=== PATIENT | male | born 1950 | race Caucasian/White ===

== ENCOUNTER 2018-11-05 08:30 | Emergency (ER) | payer MEDICARE, OTHER, SELFPAY ==
[2018-11-05 08:41] VITALS: BP 199/76; PULSE 89; RESP 18; TEMP 36.5; O2SAT 100
[2018-11-05 08:53] VITALS: BP 180/70; RESP 16; O2SAT 99
--- NOTE | 2018-11-05 09:04 | NUR.NOTE ---
20/50 right eye could not see chart with left eye patient reports can make out a hernandez outline and 20/50 bilateral Nursing Note:
--- NOTE | 2018-11-05 09:25 | DI.CT_ITS ---
SYMPTOM/DIAGNOSIS: LEFT EYE BLURRY VISION, R/O CVA NONCONTRAST HEAD CT: There are no prior comparison exams. No intracranial hemorrhage, mass or infarct is seen. There is mild atrophy consistent with the patient's age. The ventricles are normal in size. No significant white matter changes are visible. The orbits are unremarkable. There is mild sinus mucosal thickening. The mastoid air cells appear clear. There is no skull fracture. IMPRESSION: No acute abnormality.
--- NOTE | 2018-11-05 09:30 | DI.RAD_ITS ---
SYMPTOM/DIAGNOSIS: LEFT EYE BLURRY VISION, R/O WIDENED MEDIASTINUM PA AND LATERAL CHEST: There are no prior comparison exams. Cardiac and mediastinal contours have a normal appearance. The lungs are clear. There is mild elevation of the right diaphragm. IMPRESSION: Negative chest x-ray.
[2018-11-05 09:40] LABS: Abs Immature Grans 0.05 k/cumm (0.0-0.09); Absolute Basophil Count 0.11 k/cumm (0.0-0.2); Absolute Monocyte Count 0.82 k/cumm (0.11-0.7); Absolute Neutrophil Count 6.88 k/cumm (1.2-6.7); Eosinophils % 1.9; HCT 50.6 % (40.0-50.0); HGB 17.2 g/dL (13.5-17.5); Immature Grans % 0.5; Lymphocytes % 23.7; Mean Corpuscular Hemoglobin 30.3 pg (27.0-33.0); Mean Corpuscular Volume 89.2 fL (80-95); Mean Platelet Volume 8.8 fL (8.0-11.0); Monocytes % 7.8; Neutrophils % 65.1; Platelet Count 338 x1000/uL (130-400); RBC 5.67 m/cumm (4.50-6.00); RBC Distribution Width 14.6 % (11.8-14.1); White Blood Cell Count 10.56 k/cumm (4.4-10.8)
[2018-11-05 09:55] LABS: ALT 24 U/L (12-78); AST 19 U/L (15-37); Albumin 3.9 g/dL (3.4-5.0); Alkaline Phosphatase 105 U/L (46-116); Anion Gap 10.9 mmol/L (3-11); BUN 13 mg/dL (7-18); Bilirubin, Total 0.8 mg/dL (0.2-1.0); CO2 28.1 mmol/L (21.0-32.0); CREATININE 1.02 mg/dL (0.70-1.30); Calcium 9.2 mg/dL (8.5-10.1); Chloride 104 mmol/L (98-107); Glucose 113 mg/dL (70-100); Potassium 4.2 mmol/L (3.5-5.1); Sodium 143 mmol/L (136-145); Troponin I 0.04 ng/mL (0.00-0.06)
--- NOTE | 2018-11-05 10:39 | NUR.NOTE ---
patient examined by MD, has been to CT and back denies any pain or nausea, continued left eye hernandez vision Nursing Note:
--- NOTE | 2018-11-05 10:44 | ED.GENADUL_ITS ---
Discharge Plan Disposition Patient Disposition: OTHER Condition: Stable Discharge Details Chief Complaint: EyeProblem Clinical Impression: Unilateral visual loss Primary Care Provider: Scott Dangelo ED Provider: Shaylee Dockery Home Meds and New Rx's Prescriptions: Continued tamsulosin 0.4 MG capsule 0.4 mg PO DAILY Qty: 90 RF: 4 amlodipine 5 MG tablet 5 mg PO DAILY RF: 0 simvastatin 20 MG tablet 20 mg PO DAILY RF: 0 aspirin [Aspirin Low-Strength] 81 MG tablet,chewable 81 mg PO DAILY RF: 0 bupropion HCl 150 MG tablet extended release 24 hr 150 mg PO BID RF: 0 Discharge Instructions Instructions: Blurred Vision (ED) Additional Instructions: Go directly to [facility] across the street at [address] - [address] - for your appointment at 11:15am with Dr. Morgan. Return immediately to the emergency department any worsening or new concerning symptoms. Discharge Data Discharge Date/Time-TO BE ENTERED AT DEPARTURE: 11/05/18 11:00 Discharge Physician: Shaylee Dockery Medical Decision Making 68yo M with a history hypertension high cholesterol who presents with left eye vision loss since last night. Describes it as hernandez, flashes of light and photophobia. No eye pain, injury, headache, dizziness, unilateral weakness/numbness or speech changes. OD 20/50, OS none, OU 20/50. Patient appears nontoxic and in no acute distress. No focal deficits. Left eye possible papilledema, difficult to assess in miotic pupil. No afferent pupillary defect. No evidence of cellulitis, glaucoma or trauma. Differential diagnoses include central retinal artery or vein occlusion, retinal detachment, ocular migraine, optic neuropathy, etc. Labs and imaging obtained on arrival and unremarkable. Negative CT head, chest x-ray. Will call ophthalmology here for recs. [facility] across the [address] and Dr. Morgan will see pt at 11:15am this morning. Patient discharged to go directly to his appointment now. Patient instructed to return immediately with any concerns. Medical Records Medical records reviewed: Yes I reviewed the patient's medical records. Imaging Data Radiologic Study: Radiologist's impression: RAD:XR chest 2V PA & lateral SYMPTOM/DIAGNOSIS: LEFT EYE BLURRY VISION, R/O WIDENED MEDIASTINUM PA AND LATERAL CHEST: There are no prior comparison exams. Cardiac and mediastinal contours have a normal appearance. The lungs are clear. There is mild elevation of the right diaphragm. IMPRESSION: Negative chest x-ray. CT:CT head wo SYMPTOM/DIAGNOSIS: LEFT EYE BLURRY VISION, R/O CVA NONCONTRAST HEAD CT: There are no prior comparison exams. No intracranial hemorrhage, mass or infarct is seen. There is mild atrophy consistent with the patient's age. The ventricles are normal in size. No significant white matter changes are visible. The orbits are unremarkable. There is mild sinus mucosal thickening. The mastoid air cells appear clear. There is no skull fracture. IMPRESSION: No acute abnormality. Lab Data Lab results reviewed: Yes I reviewed the patient's lab results. Laboratory Tests Range/Units 11/05/18 11/05/18 09:30 09:30 WBC (4.4-10.8) k/cumm 10.56 RBC (4.50-6.00) m/cumm 5.67 Hgb (13.5-17.5) g/dL 17.2 Hct (40.0-50.0) % 50.6 H MCV (80-95) fL 89.2 MCH (27.0-33.0) pg 30.3 MCHC (32.0-36.0) g/dL 34.0 RDW (11.8-14.1) % 14.6 H Plt Count (130-400) x1000/uL 338 MPV (8.0-11.0) fL 8.8 Immature Gran % 0.5 Neutrophils % 65.1 Lymphocytes % 23.7 Monocytes % 7.8 Eosinophils % 1.9 Basophils % 1.0 Absolute Neutrophils (1.2-6.7) k/cumm 6.88 H Absolute Lymphocytes (1.2-3.4) k/cumm 2.50 Absolute Monocytes (0.11-0.7) k/cumm 0.82 H Absolute Eosinophils (0.0-0.7) k/cumm 0.20 Absolute Basophils (0.0-0.2) k/cumm 0.11 Sodium (136-145) mmol/L 143 Potassium (3.5-5.1) mmol/L 4.2 Chloride (98-107) mmol/L 104 Carbon Dioxide (21.0-32.0) mmol/L 28.1 Anion Gap (3-11) mmol/L 10.9 BUN (7-18) mg/dL 13 Creatinine (0.70-1.30) mg/dL 1.02 Estimated GFR/1.73 m2 (mL/min/1.73m2) >= 60.00 Glucose (70-100) mg/dL 113 H Calcium (8.5-10.1) mg/dL 9.2 Magnesium (1.8-2.4) mg/dL 2.0 Total Bilirubin (0.2-1.0) mg/dL 0.8 AST (15-37) U/L 19 ALT (12-78) U/L 24 Alkaline Phosphatase (46-116) U/L 105 Troponin I (0.00-0.06) ng/mL 0.04 Total Protein (6.4-8.2) g/dL 8.0 Albumin (3.4-5.0) g/dL 3.9 HPI General Mode of arrival: ambulatory . Date/Time Provider Initiated Documentation: 11/05/18 09:05 . Limitations to Documentation: no limitations . Information obtained by: patient . HPI Narrative: Patient is a 68 year old male with a history of hypertension and high cholesterol who presents with left eye visual loss since last night. Patient states he was walking into his house when he thought that his left eye appeared hernandez and he had loss of vision in his left eye. States when he closes his eye he sees lightning flashes in his left eye. He also admits to left eye light sensitivity. Patient states when he closes his left eye and opens it, he has brief return of vision but then loses the vision after 2-3 seconds. He denies any eye pain, eye injury, headache, dizziness, tearing, discharge. He does not wear contacts. Related Data Home Medications Medication Instructions Recorded Confirmed tamsulosin 0.4 mg PO DAILY #90 tab-cap 03/17/14 11/05/18 amlodipine 5 mg PO DAILY 02/10/15 11/05/18 aspirin [Aspirin Low-Strength] 81 mg PO DAILY 02/10/15 11/05/18 bupropion HCl 150 mg PO BID 02/10/15 02/10/15 simvastatin 20 mg PO DAILY 02/10/15 11/05/18 Allergies Allergy/AdvReac Type Severity Reaction Status Date / Time losartan AdvReac cough Unverified 11/05/18 08:50 General Stated Complaint: EyeProblem ARUN: 2 Review of Systems Review of Systems All systems reviewed & are unremarkable except as noted in HPI and below Constitutional Reports as per HPI, Denies chills and Denies fever(s) Eyes Reports blurry vision ENT Denies dizziness, Denies sore throat and Denies throat swelling Cardiovascular Denies chest pain and Denies dyspnea Respiratory Denies dyspnea Gastrointestinal Denies abdominal pain, Denies diarrhea and Denies vomiting Genitourinary Denies hematuria and Denies dysuria Musculoskeletal Denies back pain and Denies numbness Integumentary/Breasts Denies lesions and Denies rash Neurologic Denies dizziness and Denies numbness Allergic/Immunologic Denies throat swelling PFSH Medical History Hyperlipemia (Acute) No significant past surgical history (Acute) HTN (hypertension) (Chronic) Social History Smoking/Tobacco Use Status: Current every day alcohol intake: current alcohol intake frequency: a few times a month substance use type: does not use Exam Const General: cooperative and healthy appearing Orientation: alert and awake HENMT Head: normal to inspection Ears: hearing grossly normal bilaterally, external ears normal and TM's normal bilaterally General nose exam: external nose normal Face and sinus: normal facial exam Mouth: oral mucosae normal Eyes General: appearance normal, both eyes and all related structures Eyelids: eyelids normal Pupils: PERRL EOM: EOM intact bilaterally Direct ophthalmoscopy: anterior chamber abnormal, vascular abnormality on the left (questionable papilledema on L, limited due to miotic pupil ) and other (no afferent pupillary defect ) Neck Neck: normal visual inspection Lymphatic: no lymphadenopathy noted Resp Effort & Inspection: normal respiratory effort and able to speak in complete sentences Auscultation: clear to auscultation bilaterally Cardio Rate: regular rate Rhythm: regular rhythm Skin General skin exam: no rashes or lesions noted Neuro General: alert and awake Cranial Nerves: CN's II-XI intact bilaterally Cognition: normal cognition Speech: speech normal Gait: normal gait Motor: muscle tone normal throughout and strength 5/5 throughout Sensory Exam: no sensory deficits noted Extrem General: normal to inspection and full ROM Psych Appearance: grossly normal Mental Status: mental status grossly normal Speech and Movement: speech and movement normal Affect: normal affect Thought Process: normal Course Vital Signs Temperature 97.7 F 11/05/18 08:41 Pulse 89 11/05/18 08:41 Respiratory Rate 18 11/05/18 08:41 Blood Pressure 199/76 H 11/05/18 08:41 Pulse Oximetry 100 11/05/18 08:41 Temperature 97.7 F 11/05/18 08:41 Temperature Source Skin 11/05/18 08:41 Pulse 89 11/05/18 08:41 Respiratory Rate 16 11/05/18 08:53 Respiratory Effort 11/05/18 08:44 Blood Pressure 180/70 H 11/05/18 08:53 Blood Pressure Position Sitting 11/05/18 08:41 Pulse Oximetry 99 11/05/18 08:53 Oxygen Delivery Method Room Air 11/05/18 08:53 Oxygen Flow Rate 0 11/05/18 08:53 Pain Level 0 11/05/18 08:53 Lab/Test Results Lab/Test Results: Laboratory Tests Range/Units 11/05/18 11/05/18 09:30 09:30 WBC (4.4-10.8) k/cumm 10.56 RBC (4.50-6.00) m/cumm 5.67 Hgb (13.5-17.5) g/dL 17.2 Hct (40.0-50.0) % 50.6 H MCV (80-95) fL 89.2 MCH (27.0-33.0) pg 30.3 MCHC (32.0-36.0) g/dL 34.0 RDW (11.8-14.1) % 14.6 H Plt Count (130-400) x1000/uL 338 MPV (8.0-11.0) fL 8.8 Immature Gran % 0.5 Neutrophils % 65.1 Lymphocytes % 23.7 Monocytes % 7.8 Eosinophils % 1.9 Basophils % 1.0 Absolute Neutrophils (1.2-6.7) k/cumm 6.88 H Absolute Lymphocytes (1.2-3.4) k/cumm 2.50 Absolute Monocytes (0.11-0.7) k/cumm 0.82 H Absolute Eosinophils (0.0-0.7) k/cumm 0.20 Absolute Basophils (0.0-0.2) k/cumm 0.11 Sodium (136-145) mmol/L 143 Potassium (3.5-5.1) mmol/L 4.2 Chloride (98-107) mmol/L 104 Carbon Dioxide (21.0-32.0) mmol/L 28.1 Anion Gap (3-11) mmol/L 10.9 BUN (7-18) mg/dL 13 Creatinine (0.70-1.30) mg/dL 1.02 Estimated GFR/1.73 m2 (mL/min/1.73m2) >= 60.00 Glucose (70-100) mg/dL 113 H Calcium (8.5-10.1) mg/dL 9.2 Magnesium (1.8-2.4) mg/dL 2.0 Total Bilirubin (0.2-1.0) mg/dL 0.8 AST (15-37) U/L 19 ALT (12-78) U/L 24 Alkaline Phosphatase (46-116) U/L 105 Troponin I (0.00-0.06) ng/mL 0.04 Total Protein (6.4-8.2) g/dL 8.0 Albumin (3.4-5.0) g/dL 3.9
[2018-11-05 10:59] VITALS: BP 175/86; PULSE 78
--- NOTE | 2018-11-05 11:00 | NUR.NOTE ---
aware of ekg not done and not needed Nursing Note:
== END 2018-11-05 11:00 | disposition other institution (70) ==
PROVIDERS: Emergency Provider Physician Assistant; PCP Internal Medicine
DX: H54.62 Unqualified visual loss, left eye, normal vision right eye (principal); I10 Essential (primary) hypertension
CPT/HCPCS: 80053; 99284; 70450; 71046; 83735; 84484; 85025

== ENCOUNTER 2018-11-12 00:51 | Outpatient (CLI) | payer MEDICARE, OTHER, SELFPAY ==
--- NOTE | 2018-11-12 09:34 | DI.US_ITS ---
SYMPTOM/DIAGNOSIS: CENTRAL RETINAL ARTERY OCCLUSION, LT H34.12 CAROTID ULTRASOUND: The study was conducted according to the usual protocol. Severe plaque is noted in the right carotid bulb and internal carotid artery and its proximal segment. There is moderate to severe plaque in the left bulb and external carotid artery. The left ICA proximal and distal segments are completely occluded and filled with plaque. Bilateral antegrade flow is noted in the vertebrals. There is near occlusion involving the right internal carotid artery as well with complete occlusion of the left internal carotid artery noted. 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 These findings were conveyed to the provider immediately following completion of the exam.
== END 2018-11-12 01:11 ==
PROVIDERS: PCP Internal Medicine; Visit Provider Internal Medicine
DX: H34.12 Central retinal artery occlusion, left eye (principal); I65.23 Occlusion and stenosis of bilateral carotid arteries
CPT/HCPCS: 93880

== ENCOUNTER 2021-02-08 10:04 | Day surgery (SDC) | payer MEDICARE, OTHER, SELFPAY ==
[2021-02-08 10:26] VITALS: BP 140/65; PULSE 71; RESP 16; TEMP 36.3; O2SAT 98
[2021-02-08] MEDS: Tropicam./Phenyleph. (1/2.5%) 5 ML BTL OD ×3 (10:48→11:04)
[2021-02-08] MEDS: Tetracaine 0.5% 4 ML BTL OD (11:57)
[2021-02-08] MEDS: Balanced Salt Soln.-PLUS 500 ML BAG (11:57)
[2021-02-08] MEDS: Duovisc Viscoelastic System EACH 1 EACH (11:58)
[2021-02-08] MEDS: Lidocaine 1% Pres-Free 5 ML VIAL (11:58)
[2021-02-08] MEDS: Lidocaine 2% Jelly 6 ML SYR (11:59)
[2021-02-08] MEDS: Povidone-Iodine Ophth 30 ML BTL (12:00)
--- NOTE | 2021-02-08 12:16 | W.PM.DSUDISC ---
Discharge Plan Disposition Patient Disposition: HOME Condition: Good Discharge Details Attending Provider: Gee Burch Primary Care Provider: Scott Dangelo Home Meds and New Rx's Prescriptions: No Action tamsulosin 0.4 MG capsule 0.4 mg PO DAILY Qty: 90 RF: 4 amlodipine 5 MG tablet 5 mg PO DAILY RF: 0 simvastatin 20 MG tablet 20 mg PO DAILY RF: 0 bupropion HCl 150 MG tablet extended release 24 hr 150 mg PO BID RF: 0 aspirin 325 mg Tablet 325 mg PO DAILY RF: 0 Discharge Instructions Stand Alone Forms: Post-op Topical Cataract, Yesi Campos (DSU) Discharge Orders Discharge Orders: Discharge Order (Routine); Ordered 02/08/21 Ordered By: Gee Burch DS: Diagnosis Discharge Diagnosis (1) Cortical cataract of right eye: Status: Resolved (2) Nuclear sclerotic cataract of right eye: Status: Resolved (3) Posterior subcapsular age-related cataract, right eye: Status: Resolved
--- NOTE | 2021-02-08 12:18 | ROE_ITS ---
Date of service: 02/08/21 Time of Service: 12:18 Operative Note Operative Note DATE OF PROCEDURE: 02/08/21 PRE-OP DIAGNOSIS: Nuclear/cortical/posterior subcapsular cataract, right eye POST-OP DIAGNOSIS: same PROCEDURE: Cataract extraction using phacoemulsification with intraocular lens implant, right eye SURGEON: Gee Burch ANESTHESIA TYPE: Local By Surgeon and MAC Refer to Anesthesia Record ESTIMATED BLOOD LOSS: 0 PATHOLOGY: none sent COMPLICATIONS: None Patient was transported to: same day Patient's condition: stable Implants: [employer] / [employer] Tecnis [id number] intraocular lens Indications: Progressive decreased vision due to cataract, right eye Procedure Description: CATARACT SURGERY OPERATIVE REPORT PREOPERATIVE DIAGNOSIS: Nuclear/cortical/posterior subcapsular cataract, right eye POSTOPERATIVE DIAGNOSIS: Same OPERATION: Cataract extraction using phacoemulsification with posterior chamber intraocular lens implant, right eye. IOL: IOL Primary Care Nurse/Model: [employer] / [employer]ICK[employer] Tecnis [id number] IOL Power: + 21.5 diopters IOL Serial Number: [id number] Optic Diameter: 6.0mm Haptic/Overall Diameter: 13.0mm PHACO INFO: [employer] Vision System with [employer]Zil and [employer] Cumulative Dispersed Energy (CDE): 5.64 seconds SURGEON: Gee Burch MD, HUEY ANESTHESIA: Monitored Anesthesia Care (MAC), with local sub-tenon's anesthetic infiltration COMPLICATIONS: None SPECIMENS: None INDICATIONS FOR PROCEDURE: Patient is a 70-year-old gentleman with history of diminished visual acuity in the right eye secondary to the development of nuclear/cortical/posterior subcapsular cataract in the right eye. The option of cataract surgery was offered to the patient and he felt he was symptomatic enough that he wished to proceed. PROCEDURE: The correct surgical eye was identified and marked as the right eye and the pupil was dilated in the preoperative area using mydriatics and cycloplegics. The dilated pupil size was 7.0 mm. He elected to proceed without sedation. The patient was brought to the operating room where cardiopulmonary monitoring was instituted and surgical time-out was performed, confirming the correct operative eye and IOL power. Topical anesthesia was administered and ophthalmic povidone-iodine 5% was instilled into the conjunctival fornices. Lidocaine gel was applied to the cornea and the nayan-ocular area was prepped with Betadine 10% solution and draped in the usual sterile fashion for intraocular surgery, including an aperture drape. A Tegaderm transparent film dressing was cut in half and used to cover the lashes and lid margins. Care was taken to sequester the lashes and lid margins under the Tegaderm dressing. A lid speculum was placed between the lids of the operative eye and the [employer] operating microscope was maneuvered into position. Fiona scissors were then used to make a conjunctival buttonhole approximately 6mm posterior to the limbus in the inferonasal quadrant. Blunt dissection was carried out to expose bare sclera, and a blunt-tipped sub-tenon?s anesthesia cannula was introduced and passed posteriorly along the globe where non- preserved plain lidocaine was injected into posterior sub-Tenon?s space. A sideport knife was used to make a paracentesis port inferiortemporally. Intraocular phenylephrine/lidocaine was injected into the anterior chamber. The anterior chamber was then filled with viscoelastic. A 2.4mm keratome knife was used to create a half-thickness groove at the limbus and then to construct a three-plane near-clear corneal tunnel extending 2.0mm into clear cornea in the superiortemporal position. . A flap was raised on the anterior capsule and capsulorhexis forceps were used to complete a continuous curvilinear capsulorhexis of 5.0mm. Balanced salt solution was then used to perform cortical cleaving hydrodissection and nuclear hydrodelineation until the lens could be freely rotated within the capsular bag. The lens nucleus was then disassembled and removed within the capsular bag and iris plane using phacoemulsification. Residual cortical material was removed using the I/A handpiece. The posterior capsule was carefully polished to remove as much residual lens epithelial cells as safely possible. The capsular bag was then inflated and the anterior chamber deepened with viscoelastic. The lens implant described above was inserted into the capsular bag using the NICK[employer] [place] Injector. A Kuglen hook was used to dial the IOL into position. Residual viscoelastic was then removed first from posterior to the IOL, then from the anterior chamber using the I/A handpiece. The lens implant was noted to center nicely within the capsular bag. The incisions were stromally hydrated, and the anterior chamber was reformed using BSS. Then 0.5cc of moxifloxacin 1.0mg/ml were injected into the capsular bag and anterior chamber. The incisions were checked with a Weck spear and found to be secure. Several drops of ophthalmic povidone-iodine 5% were then applied to the eye followed by two drops of Imprimis combination prednisolone/moxifloxacin/nepafenac solution. The drapes were removed and a clear plastic protective eye shield was placed over the eye. The patient was then returned to [facility] in stable condition.
== END 2021-02-08 12:45 | disposition home or self-care (01) ==
PROVIDERS: PCP Internal Medicine; Visit Provider Ophthalmology
PROC: (CPT 66984; principal; 2021-02-08 13:30)
DX: H25.11 Age-related nuclear cataract, right eye (principal); H25.041 Posterior subcapsular polar age-related cataract, right eye; E78.00 Pure hypercholesterolemia, unspecified; I10 Essential (primary) hypertension
CPT/HCPCS: 66984; V2632

== ENCOUNTER 2021-02-22 07:30 | Day surgery (SDC) | payer MEDICARE, OTHER, SELFPAY ==
[2021-02-22] MEDS: Tropicam./Phenyleph. (1/2.5%) 5 ML BTL OS ×3 (07:47→08:02)
[2021-02-22 07:52] VITALS: BP 119/69; PULSE 64; RESP 16; TEMP 36.5; O2SAT 98
[2021-02-22] MEDS: Tetracaine 0.5% 4 ML BTL OS (08:58)
[2021-02-22] MEDS: Lidocaine 2% Jelly 6 ML SYR (08:59)
[2021-02-22] MEDS: Povidone-Iodine Ophth 30 ML BTL (09:00)
[2021-02-22] MEDS: Lidocaine 1% Pres-Free 5 ML VIAL (09:06)
[2021-02-22] MEDS: Balanced Salt Soln.-PLUS 500 ML BAG (09:10)
[2021-02-22] MEDS: Duovisc Viscoelastic System EACH 1 EACH (09:11)
--- NOTE | 2021-02-22 09:27 | W.PM.DSUDISC ---
Discharge Plan Disposition Patient Disposition: HOME Condition: Good Discharge Details Attending Provider: Gee Burch Primary Care Provider: Scott Dangelo Home Meds and New Rx's Prescriptions: No Action tamsulosin 0.4 MG capsule 0.4 mg PO DAILY Qty: 90 RF: 4 amlodipine 5 MG tablet 5 mg PO DAILY RF: 0 simvastatin 20 MG tablet 20 mg PO DAILY RF: 0 bupropion HCl 150 MG tablet extended release 24 hr 150 mg PO BID RF: 0 aspirin 325 mg Tablet 325 mg PO DAILY RF: 0 Discharge Instructions Stand Alone Forms: Post-op Topical Cataract, Yesi Campos (DSU) Discharge Orders Discharge Orders: Discharge Order (Routine); Ordered 02/22/21 Ordered By: Gee Burch DS: Diagnosis Discharge Diagnosis (1) Cortical cataract of left eye: Status: Resolved (2) Nuclear sclerotic cataract of left eye: Status: Resolved (3) Posterior subcapsular age-related cataract of left eye: Status: Resolved (4) Central retinal artery occlusion of left eye: Status: Chronic
--- NOTE | 2021-02-22 09:29 | W.PM.OP ---
Date of service: 02/22/21 Time of Service: 09:29 Operative Note Operative Note DATE OF PROCEDURE: 02/22/21 PRE-OP DIAGNOSIS: Nuclear/cortical/posterior subcapsular cataract, left eye POST-OP DIAGNOSIS: same PROCEDURE: Cataract extraction using phacoemulsification with intraocular lens implant, left eye SURGEON: Gee Burch ANESTHESIA TYPE: Local By Surgeon and MAC Refer to Anesthesia Record PATHOLOGY: none sent COMPLICATIONS: None Patient was transported to: same day Patient's condition: stable Implants: [employer] / [employer] Tecnis ZCB00 Indications: Progressive decreased vision due to cataract, left eye Procedure Description: CATARACT SURGERY OPERATIVE REPORT PREOPERATIVE DIAGNOSIS: Nuclear/cortical/posterior subcapsular cataract, left eye POSTOPERATIVE DIAGNOSIS: Same OPERATION: Cataract extraction using phacoemulsification with posterior chamber intraocular lens implant, left eye. IOL: IOL Chief Compliance Officer/Model: [employer] / [employer]nis ZCB00 IOL Power: + 21.0 diopters IOL Serial Number: [id number] Optic Diameter: 6.0mm Haptic/Overall Diameter: 13.0mm PHACO INFO: Raoul [employer] Vision System with [employer]Zil and [employer] Cumulative Dispersed Energy (CDE): 7.55 seconds SURGEON: Gee Burch MD, HUEY ANESTHESIA: Monitored Anesthesia Care (MAC), with local sub-tenon's anesthetic infiltration COMPLICATIONS: None SPECIMENS: None INDICATIONS FOR PROCEDURE: Patient is a 70-year-old gentleman with history of diminished visual acuity in both eyes secondary to the development of bilateral nuclear/cortical/posterior subcapsular cataract. He has a history of central retinal artery occlusion in the left eye, but maintained some small field of vision. He has already undergone cataract surgery in his right eye and is doing well postoperatively. He now presents for cataract surgery of the left eye to improve and maximize his remaining visual field. PROCEDURE: The correct surgical eye was identified and marked as the left eye and the pupil was dilated in the preoperative area using mydriatics and cycloplegics. The dilated pupil size was 7.0 mm. He elected to proceed without oral sedation the patient was brought to the operating room where cardiopulmonary monitoring was instituted and surgical time-out was performed, confirming the correct operative eye and IOL power. Topical anesthesia was administered and ophthalmic povidone-iodine 5% was instilled into the conjunctival fornices. Lidocaine gel was applied to the cornea and the nayan-ocular area was prepped with Betadine 10% solution and draped in the usual sterile fashion for intraocular surgery, including an aperture drape. A Tegaderm transparent film dressing was cut in half and used to cover the lashes and lid margins. Care was taken to sequester the lashes and lid margins under the Tegaderm dressing. A lid speculum was placed between the lids of the operative eye and the [employer] operating microscope was maneuvered into position. Fiona scissors were then used to make a conjunctival buttonhole approximately 6mm posterior to the limbus in the inferonasal quadrant. Blunt dissection was carried out to expose bare sclera, and a blunt-tipped sub-tenon?s anesthesia cannula was introduced and passed posteriorly along the globe where non-preserved plain lidocaine was injected into posterior sub-Tenon?s space. A sideport knife was used to make a paracentesis port superior/superiortemporally. Intraocular phenylephrine/lidocaine was injected into the anterior chamber. The anterior chamber was then filled with viscoelastic. A 2.4mm keratome knife was used to create a half-thickness groove at the limbus and then to construct a three-plane near-clear corneal tunnel extending 2.0mm into clear cornea in the temporal position. . A flap was raised on the anterior capsule and capsulorhexis forceps were used to complete a continuous curvilinear capsulorhexis of 5.0 mm. Balanced salt solution was then used to perform cortical cleaving hydrodissection and nuclear hydrodelineation until the lens could be freely rotated within the capsular bag. The lens nucleus was then disassembled and removed within the capsular bag and iris plane using phacoemulsification. Residual cortical material was removed using the 45-degree angled silicone I/A tip with 0.3mm port. The posterior capsule was carefully polished to remove as much residual lens epithelial cells as safely possible. The capsular bag was then inflated and the anterior chamber deepened with viscoelastic. The lens implant described above was inserted into the capsular bag using the NICKY [place] Injector. A Kuglen hook was used to dial the IOL into position. Residual viscoelastic was then removed first from posterior to the IOL, then from the anterior chamber using the I/A handpiece. The lens implant was noted to center nicely within the capsular bag. The incisions were stromally hydrated, and the anterior chamber was reformed using BSS. Then 0.5cc of moxifloxacin 1.0mg/ml were injected into the capsular bag and anterior chamber. The incisions were checked with a Weck spear and found to be secure. Several drops of ophthalmic povidone-iodine 5% were then applied to the eye followed by two drops of Imprimis combination prednisolone/moxifloxacin/nepafenac solution. The drapes were removed and a clear plastic protective eye shield was placed over the eye. The patient was then returned to [facility] in stable condition.
== END 2021-02-22 09:42 | disposition home or self-care (01) ==
PROVIDERS: PCP Internal Medicine; Visit Provider Ophthalmology
PROC: (CPT 66984; principal; 2021-02-22 09:30)
DX: H25.12 Age-related nuclear cataract, left eye (principal); H25.042 Posterior subcapsular polar age-related cataract, left eye; H25.012 Cortical age-related cataract, left eye; Z96.1 Presence of intraocular lens; Z98.41 Cataract extraction status, right eye; I10 Essential (primary) hypertension
CPT/HCPCS: 66984; V2632

== ENCOUNTER 2021-08-16 20:25 | Outpatient (REF) | payer MEDICARE, OTHER, SELFPAY ==
[2021-08-18 15:40] LABS: COVID-19 RT-PCR UVMMC Result Negative (Negative)
== END 2021-08-16 20:26 | disposition home or self-care (01) ==
LOC: LBN 20:25
PROVIDERS: PCP Internal Medicine; Visit Provider Physician Assistant Medical
DX: Z20.822 Contact with and (suspected) exposure to COVID-19 (principal); J06.9 Acute upper respiratory infection, unspecified
CPT/HCPCS: U0003

== ENCOUNTER 2021-09-16 13:33 | Outpatient (REF) | payer MEDICARE, OTHER, SELFPAY ==
[2021-09-16 22:35] LABS: Anion Gap 11.7 mmol/L (3-11); BUN 17 mg/dL (7-18); CO2 26.3 mmol/L (21.0-32.0); CREATININE 1.1 mg/dL (0.70-1.30); Calcium 9.2 mg/dL (8.5-10.1); Calculated LDL 71 mg/dL (<100); Chloride 108 mmol/L (98-107); Cholesterol 130 mg/dL (<200); Glucose 115 mg/dL (74-106); HDL Cholesterol 38 mg/dL (40-60); Potassium 4.1 mmol/L (3.5-5.1); Sodium 146 mmol/L (136-145); Triglyceride 108 mg/dL (<150)
== END 2021-09-16 13:34 | disposition home or self-care (01) ==
LOC: NCHCN 13:33
PROVIDERS: PCP Internal Medicine; Visit Provider Internal Medicine
DX: E78.5 Hyperlipidemia, unspecified (principal); I10 Essential (primary) hypertension
CPT/HCPCS: 80048; 80061

== ENCOUNTER 2023-01-05 16:01 | Outpatient (REF) | payer MEDICARE, OTHER, SELFPAY ==
[2023-01-05 15:07] LABS: ALT 16 U/L (16-63); AST < 5 U/L (15-37); Albumin 3.9 g/dL (3.4-5.0); Alkaline Phosphatase 114 U/L (46-116); BUN 11 mg/dL (7-18); Bilirubin, Total 0.7 mg/dL (0.2-1.0); Calcium 9.2 mg/dL (8.5-10.1); Calculated LDL 70 mg/dL (<100); Chloride 104 mmol/L (98-107); Cholesterol 124 mg/dL (<200); Estimated GFR 78.98 (mL/min/1.73m2); Glucose 97 mg/dL (74-106); HDL Cholesterol 45 mg/dL (40-60); Potassium 4.6 mmol/L (3.5-5.1); Sodium 140 mmol/L (136-145); Total Protein 6.9 g/dL (6.4-8.2); Triglyceride 49 mg/dL (<150)
== END 2023-01-05 16:02 | disposition home or self-care (01) ==
LOC: NCHCN 16:01
PROVIDERS: PCP Internal Medicine; Visit Provider Internal Medicine
DX: I10 Essential (primary) hypertension (principal); E78.5 Hyperlipidemia, unspecified; R06.2 Wheezing; F17.210 Nicotine dependence, cigarettes, uncomplicated; N40.1 Benign prostatic hyperplasia with lower urinary tract symptoms
CPT/HCPCS: 80053; 80061

== ENCOUNTER 2023-11-19 14:48 | Outpatient (REF) | payer MEDICARE, OTHER, SELFPAY ==
[2023-11-19 15:15] LABS: Anion Gap 9.6 mmol/L (3-11); BUN 13 mg/dL (7-18); CO2 26.4 mmol/L (21.0-32.0); Chloride 107 mmol/L (98-107); Estimated GFR 78.49 (mL/min/1.73m2); Glucose 94 mg/dL (74-106); Potassium 4.4 mmol/L (3.5-5.1); Sodium 143 mmol/L (136-145)
[2023-11-19 22:31] LABS: PSA, Diagnostic 9.6 ng/mL (<=6.5)
== END 2023-11-19 14:49 | disposition home or self-care (01) ==
LOC: NCHCN 14:48
PROVIDERS: PCP Internal Medicine; Visit Provider Internal Medicine
DX: I10 Essential (primary) hypertension (principal); N40.1 Benign prostatic hyperplasia with lower urinary tract symptoms
CPT/HCPCS: 80048; 84153

== ENCOUNTER → 2023-12-23 09:10 | Outpatient (BNVA) | payer MEDICARE, OTHER, SELFPAY | PROVIDERS: PCP Internal Medicine; Referring Provider Internal Medicine; Visit Provider Nurse Practitioner Gerontology | DX: N40.1 Benign prostatic hyperplasia with lower urinary tract symptoms (principal); N13.8 Other obstructive and reflux uropathy; R97.20 Elevated prostate specific antigen [PSA] | CPT/HCPCS: 51798; 81003; 99205 ==

== ENCOUNTER 2023-12-23 09:47 | Outpatient (REF) | payer MEDICARE, OTHER, SELFPAY | END 2023-12-23 09:48 | disposition home or self-care (01) | LOC: LBN 09:47 | PROVIDERS: PCP Internal Medicine; Visit Provider Nurse Practitioner Gerontology | DX: R35.0 Frequency of micturition (principal) | CPT/HCPCS: 87077; 87086; 87186 ==

== ENCOUNTER 2024-02-17 04:39 | Outpatient (CLI) | payer MEDICARE, OTHER, SELFPAY ==
[2024-02-17 18:52] LABS: PSA, Diagnostic 11.2 ng/mL (<=6.5)
== END 2024-02-17 04:40 | disposition home or self-care (01) ==
LOC: LBO 04:39
PROVIDERS: PCP Internal Medicine; Visit Provider Nurse Practitioner Gerontology
DX: R97.20 Elevated prostate specific antigen [PSA] (principal); N40.1 Benign prostatic hyperplasia with lower urinary tract symptoms; N13.8 Other obstructive and reflux uropathy
CPT/HCPCS: 36415; 84153

== ENCOUNTER → 2024-02-24 08:27 | Outpatient (BNVA) | payer MEDICARE, OTHER, SELFPAY | PROVIDERS: PCP Internal Medicine; Referring Provider Internal Medicine; Visit Provider Nurse Practitioner Gerontology | DX: N40.1 Benign prostatic hyperplasia with lower urinary tract symptoms (principal); N13.8 Other obstructive and reflux uropathy; R97.20 Elevated prostate specific antigen [PSA] | CPT/HCPCS: 51798; 99215 ==

== ENCOUNTER 2024-12-21 16:39 | Outpatient (REF) | payer MEDICARE, OTHER, SELFPAY ==
[2024-12-21 16:01] LABS: Abs Immature Grans 0.06 10^3/uL (0.0-0.06); Absolute Basophil Count 0.12 10^3/uL (0.0-0.2); Absolute Eosinophil Count 0.18 10^3/uL (0.0-0.7); Absolute Lymphocyte Count 2.45 10^3/uL (1.2-3.4); Absolute Monocyte Count 0.75 10^3/uL (0.1-0.8); Absolute Neutrophil Count 5.82 10^3/uL (1.2-6.7); Basophils % 1.3 %; Eosinophils % 1.9 %; HCT 47.6 % (40.0-50.0); HGB 15.9 g/dL (13.5-17.5); Immature Grans % 0.6 %; Lymphocytes % 26.1 %; MCH 29.9 pg (27.0-33.0); MCHC 33.4 % (32.0-36.0); MCV 90 fL (80-95); MPV 9.5 fL (8.0-11.0); Neutrophils % 62.1 %; Platelet Count 352 10^3/uL (130-400); RBC 5.32 10^6/uL (4.36-5.78); RDW 14.1 % (11.8-14.1); RDW-SD 45.8 fL; WBC 9.38 10^3/uL (4.4-10.8)
[2024-12-21 16:40] LABS: ALT 22 U/L (16-63); AST 14 U/L (15-37); Albumin 3.8 g/dL (3.4-5.0); Alkaline Phosphatase 123 U/L (46-116); Anion Gap 8.8 mmol/L (3-11); BUN 14 mg/dL (7-18); Bilirubin, Total 0.63 mg/dL (0.2-1.0); CO2 27.2 mmol/L (21.0-32.0); CREATININE 1.1 mg/dL (0.70-1.30); Calcium 9.2 mg/dL (8.5-10.1); Chloride 110 mmol/L (98-107); Estimated GFR 69.57 (mL/min/1.73m2); Glucose 94 mg/dL (74-106); LDL CHOLESTEROL 62 mg/dL (<100); Potassium 4.2 mmol/L (3.5-5.1); Sodium 146 mmol/L (136-145); Total Protein 7.1 g/dL (6.4-8.2)
[2024-12-22 21:24] LABS: PSA, Diagnostic 9.7 ng/mL (<=6.5)
== END 2024-12-21 16:40 | disposition home or self-care (01) ==
LOC: NCHCN 16:39
PROVIDERS: PCP Family Medicine; Visit Provider Family Medicine
DX: I10 Essential (primary) hypertension (principal); E78.5 Hyperlipidemia, unspecified; R97.20 Elevated prostate specific antigen [PSA]
CPT/HCPCS: 80053; 83721; 84153; 85025